=== PATIENT | female | born 1990 | race Caucasian/White ===

== ENCOUNTER 2019-01-05 09:06 | Day surgery (SDC) | payer OTHER ==
[2019-01-04 11:32] VITALS: BMI 42.0
[2019-01-05] MEDS ORDERED: LIDOCAINE HCL/PF 2% SDV 5ML VIAL ONE (10:04)
[2019-01-05] MEDS ORDERED: PROPOFOL 20 ML ONE (10:04)
[2019-01-05 10:48] VITALS: TEMP 98
[2019-01-05 11:12] VITALS: BP 119/80; PULSE 70
--- NOTE | 2019-01-10 12:45 | PATH ---
Surgical Pathology Report Patient Name: MEHRAN MAGDALENO [facility]. Rec. #: [id number] /Age/Gender: 1990 (Age: 28) / F Account: [id number] Location: [facility] Taken: 01/05/2019 Received: 01/05/2019 Reported: 01/10/2019 Physicians: Dre Wylie M.D. Specimen(s) Received A: BIOPSY SECOND PORTION DUODENUM B: BX ANTRUM C: BX GE JUNCTION Clinical History Belly pain Postoperative diagnosis: Gastritis Final Diagnosis A. SECOND PORTION OF DUODENUM, BIOPSY: DUODENAL MUCOSA WITH NO PATHOLOGIC FINDINGS. B. GASTRIC ANTRUM, BIOPSY: MODERATE CHRONIC ACTIVE GASTRITIS. IMMUNOSTAIN SHOWS NUMEROUS H. PYLORI ORGANISMS. C. GE JUNCTION, BIOPSY: ESOPHAGOGASTRIC JUNCTIONAL (SQUAMOCOLUMNAR) MUCOSA SHOWING MODERATE CHRONIC ACTIVE GASTRITIS WITH NUMEROUS H PYLORI ORGANISMS. NEGATIVE FOR INTESTINAL METAPLASIA. Electronically Signed Alejandra Patterson M.D. Gross Description A. Received in formalin, labeled "biopsy second portion of duodenum" is a hightower, irregular portion of soft tissue measuring 0.4 cm. in greatest dimension. The specimen is submitted in toto in one cassette. B. Received in formalin, labeled "biopsy gastric antrum" is a hightower, irregular portion of soft tissue measuring 0.4 cm. in greatest dimension. The specimen is submitted in toto in one cassette. C. Received in formalin, labeled "biopsy GE junction" is a hightower, irregular portion of soft tissue measuring 0.3 cm. in greatest dimension. The specimen is submitted in toto in one cassette. 01/06/2019 saudi01/06/2019
== END 2019-01-05 11:12 | disposition home or self-care (01) ==
LOC: FASU 09:06
PROVIDERS: ATTEND Internal Medicine Gastroenterology
PROC: 0DB68ZX Excision of Stomach, Via Natural or Artificial Opening Endoscopic, Diagnostic (ICD-10-PCS; 2019-01-05)
PROC: 0DB58ZX Excision of Esophagus, Via Natural or Artificial Opening Endoscopic, Diagnostic (ICD-10-PCS; 2019-01-05)
PROC: 0DB98ZX Excision of Duodenum, Via Natural or Artificial Opening Endoscopic, Diagnostic (ICD-10-PCS; principal; 2019-01-05 10:19)
DX: K29.50 Unspecified chronic gastritis without bleeding (principal); B96.81 Helicobacter pylori [H. pylori] as the cause of diseases classified elsewhere; R10.13 Epigastric pain
CPT/HCPCS: 84703; 88305-TC; 88342-TC